=== PATIENT | female | born 1970 | race Caucasian/White ===

== ENCOUNTER 2017-09-01 14:25 | Emergency (ER) | payer BC ==
--- NOTE | 2017-09-01 15:23 | Emergency Department Record ---
History of Present Illness - General Chief Complaint: Cough Stated Complaint: COUGH Time Seen by Provider: 09/01/17 14:58 Source: Patient Mode of Arrival: Ambulatory Limitations: No limitations - History of Present Illness Initial Comments: The patient is here due to an 8 day hx of cough, sputum production and now chest congestion. She has mild SOB with coughing fits but none between. She also denies any fever, blood in the sputum or CP. The patient has a hx of asthmatic bronchitis similar to this in the past. MD Complaint: Cough, Nasal congestion, Rhinorrhea Onset/Timin -: Days(s) Severity: Mild Severity scale (1-10): 2 - Related Data Previous Rx's Medication Instructions Recorded Albuterol Sulfate [Proair Hfa] 2 puff IH QID PRN #1 inhaler 09/01/17 Azithromycin [Zithromax] 250 mg PO ASDIR #6 tab 09/01/17 Prednisone [Prednisone 20Mg] 40 mg PO DAILY #10 tab 09/01/17 Allergies Allergy/AdvReac Type Severity Reaction Status Date / Time No Known Drug Allergies Allergy Verified 09/01/17 14:47 Travel Screening - Travel/Exposure Within Last 30 Days Have you traveled within the last 30 days?: No - Travel/Exposure Within Last Year Have you traveled outside the [place] in the last year?: No - Additonal Travel Details Have you been exposed to anyone with a communicable illness?: No - Travel Symptoms Symptom Screening: None Review of Systems Constitutional: Denies: Chills, Fever Eyes: Denies: Eye discharge ENT: Reports: Congestion Respiratory: Reports: Cough. Denies: Dyspnea, Hemoptysis, Stridor, Wheezes Cardiovascular: Denies: Chest pain Past Medical History - SOCIAL HISTORY Smoking Status: Never smoker Alcohol Use: Occasional Drug Use: None - RESPIRATORY Hx Bronchitis: Yes - CARDIOVASCULAR Hx Cardio Disorders: No - NEURO Hx Neuro Disorders: No - GI Hx GI Disorders: No - Hx Genitourinary Disorders: No - ENDOCRINE Hx Endocrine Disorders: No - MUSCULOSKELETAL Hx Musculoskeletal Disorders: No - PSYCH Hx Psych Problems: No - HEMATOLOGY/ONCOLOGY Hx Hematology/Oncology Disorders: No Family Medical History Any Significant Family History?: Yes Physical Exam - General General Appearance: Alert, Oriented x3, Cooperative, No acute distress - Head Head exam: Atraumatic, Normocephalic, Normal inspection - Eye Eye exam: Normal appearance, PERRL - ENT ENT exam: Normal orophraynx Throat exam: Normal inspection. negative: Tonsillar erythema, Tonsillar exudate - Neck Neck exam: Normal inspection, Full ROM. negative: Tenderness - Respiratory Respiratory exam: Normal lung sounds bilaterally. negative: Respiratory distress - Cardiovascular Cardiovascular Exam: Regular rate, Normal rhythm, Normal heart sounds - GI/Abdominal GI/Abdominal exam: Soft, Normal bowel sounds. negative: Tenderness - Extremities Extremities exam: Normal inspection, Full ROM, Normal capillary refill. negative: Tenderness - Neurological Neurological exam: Alert. negative: Motor sensory deficit Course Vital Signs 09/01/17 14:41 Temperature 98.3 F Pulse Rate 77 Respiratory 20 Rate Blood Pressure 130/77 Pulse Ox 98 - Reevaluation(s) Reevaluation #1: I did discuss the need for oral Abx's along with an inhaller and steroids. She is to see her family doctor if not better in 3 days and is to return to the ER for any worsening symptoms. 09/01/17 15:20 Disposition Disposition: Discharge Clinical Impression: Bronchitis Disposition: Home, Self-Care Condition: (2) Stable Instructions: Acute Bronchitis (ED), Bronchospasm (ED) Additional Instructions: Please take the Zpak and Albuterol and Prednisone as directed. Please see your family doctor for recheck later this week if not better. Return to the ER for any increased cough, or any shortness of breath, chest pain or fever. Prescriptions: Albuterol Sulfate [Proair Hfa] 2 puff IH QID PRN #1 inhaler PRN Reason: Cough And Difficulty Breathing Azithromycin [Zithromax] 250 mg PO ASDIR #6 tab Prednisone [Prednisone 20Mg] 40 mg PO DAILY #10 tab Forms: Patient Portal Access Time of Disposition: 15:23 Quality - Quality Measures Quality Measures: N/A - Blood Pressure Screening View Details: Yes Does Patient Have Any of the Following: No Blood Pressure Classification: Pre-Hypertensive BP Reading Systolic Measurement: 130 Diastolic Measurement: 77 Screening for High Blood Pressure: < Pre-Hypertensive BP, F/U Documented > [ [id number]] Pre-Hypertensive Follow-up Interventions: Referral to alternative/primary care provider.
== END 2017-09-01 15:31 | disposition home or self-care (01) ==
LOC: ER 14:25
DX: J20.9 Acute bronchitis, unspecified (principal); R06.02 Shortness of breath
CPT/HCPCS: 99282